=== PATIENT | male | born 1990 | race Hispanic/Latino ===

== ENCOUNTER 2022-01-18 19:07 | Emergency (ER) | payer SELFPAY ==
[2022-01-18] MEDS ORDERED: Ibuprofen 200 MG TAB ONE (19:37)
== END 2022-01-18 21:40 | disposition home or self-care (01) ==
LOC: ERS 19:07
DX: S80.02XA Contusion of left knee, initial encounter (principal); W22.8XXA Striking against or struck by other objects, initial encounter